=== PATIENT | female | born 1995 | race Caucasian/White ===

== ENCOUNTER → 2018-09-08 13:52 | Outpatient (CLI) | payer SELFPAY ==
[2018-09-08 16:07] LABS: Urine N gonorrhoeae NOT DETECTED
[2018-09-08 17:04] LABS: Pregnancy Test Urine Negative (Negative)
[2018-09-09 09:09] LABS: Urine Chlamydia DETECTED
== END ==
PROVIDERS: Visit Provider Physician Assistant
DX: N89.8 Other specified noninflammatory disorders of vagina (principal); N94.9 Unspecified condition associated with female genital organs and menstrual cycle
CPT/HCPCS: 81025; 87252; 87491; 87591

== ENCOUNTER → 2019-09-26 16:03 | Outpatient (CLI) | payer OTHER, SELFPAY ==
[2019-09-26 19:18] LABS: Creatinine Urine Random 87.1 mg/dL
[2019-09-26 19:23] LABS: Microalbumi Creatinin Ratio Ur 154.9 ug/mg CR (<30); Microalbumin Urine Random 13.5 mg/dL (0-1.6)
[2019-09-26 20:03] LABS: Add Manual Diff / Slide Review NO; Basophils Absolute Auto 100 /uL (0-100); Basophils Percent Auto 1.4 % (0-2); Eosinophils Absolute Auto 200 /uL (0-450); Hematocrit 36.6 % (36-46); Hemoglobin 12.5 g/dL (12.0-16.0); Lymphocytes Absolute Auto 3100 /uL (1100-4500); Lymphocytes Percent Auto 29.7 % (25-40); Mean Corpuscular HGB Conc 34.3 % (30-36); Mean Corpuscular Hemoglobin 27.8 PG (26-34); Monocytes Absolute Auto 700 /uL (0-900); Monocytes Percent Auto 6.9 % (3-14); Neutrophils Absolute Auto 6200 /uL (1500-7000); Platelet Count 365 X10^3/uL (150-400); Red Blood Cell Count 4.51 X10^6/uL (4.0-5.2); Red Cell Distribution Width 14.7 % (11.6-14.8); White Blood Cell Count 10.3 X10^3/uL (4.5-11.0)
[2019-09-26 20:12] LABS: Hemoglobin A1C% w Est Avg Glu 9.7 % (4.0-6.0)
[2019-09-26 20:17] LABS: Alanine Aminotransferase 15 IU/L (<35); Albumin 4.3 g/dL (3.5-5.0); Albumin Globulin Ratio 1.3 (1.0-2.8); Alkaline Phosphatase 52 U/L (38-126); Aspartate Aminotransferase 18 IU/L (14-36); Bilirubin Total 0.2 mg/dL (0.2-1.3); Blood Urea Nitrogen 13 mg/dL (7-17); Calcium 9.4 mg/dL (8.4-10.2); Carbon Dioxide 23 mmol/L (22-32); Chloride 102 mmol/L (98-107); Estimated Glomerular Filt Rate > 60.0 mL/min (>60); Globulin 3.2 g/dL (1.7-4.1); Glucose 188 mg/dL (70-100); HEMOLYSIS < 15 (0-50); Potassium 3.6 mmol/L (3.4-5.1); Sodium 135 mmol/L (137-145); Total Protein 7.5 g/dL (6.3-8.2)
[2019-09-26 20:47] LABS: TSH w/ Reflex to FT4 1.03 uIU/mL (0.47-4.68)
== END ==
PROVIDERS: PCP Registered Nurse Diabetes Educator; Referring Provider Registered Nurse Diabetes Educator; Visit Provider Registered Nurse Diabetes Educator
DX: R73.9 Hyperglycemia, unspecified (principal)
CPT/HCPCS: 36415; 80053; 82043; 82570; 83036; 84443; 85025

== ENCOUNTER 2020-09-27 19:21 | Emergency (ER) | payer OTHER, MEDICAID, SELFPAY ==
[2020-09-27 19:30] VITALS: BP 187/114; PULSE 137; RESP 15; TEMP 37.1; O2SAT 97; BMI 39.4
--- NOTE | 2020-09-27 20:43 | PC.NURSE ---
Hives started yesterday, relief after benadryl. Hives noted to abd, thighs, scalp, neck. Patient Denies SOB,chest pain. Denies tightness in throat, tongue or difficulty breathing.
[2020-09-27] MEDS: diphenhydrAMINE 25 MG TABLET 50 MG PO (21:38)
--- NOTE | 2020-09-27 21:41 | PC.NURSE ---
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 Hives have increased on neck, chest and breasts. Denies difficulty breathing or SOB. Verbal order for PO benadryl from DR Cuevas
[2020-09-27 21:42] VITALS: BP 154/97; PULSE 115; RESP 14; O2SAT 97
[2020-09-27] MEDS: predniSONE 20 MG TABLET 40 MG PO (23:01)
[2020-09-27 23:04] VITALS: BP 156/89; PULSE 119; RESP 20; O2SAT 99
--- NOTE | 2020-09-28 06:27 | ED.ALLEREA ---
HPI - Allergic Reaction General Chief complaint: Allergic Reaction Stated complaint: Broke Out in Hives, Puffy Around Eyes and Cheeks Time Seen by Provider: 09/27/20 22:46 Source: patient Mode of arrival: Ambulatory Limitations: no limitations History of Present Illness HPI narrative: 25-year-old woman experiencing hives in her upper extremities and cross her upper chest from unknown source. She has taken Benadryl but is concerned that the itching seems to be getting worse. She notes that she has been taking ibuprofen regularly for the last week or so due to dental pain and she is scheduled for a tooth extraction next week. She is also on labetalol for hypertension that was related to her recent . She is now 4 months and is not breast-feeding at this point. She does have Benadryl does help she did take a Claritin yesterday. She is not complaining of any respiratory symptoms or chest tightness. Related Data Previous Rx's Medication Instructions Recorded prednisone 20 mg PO DAILY #4 tab 09/27/20 Allergies Allergy/AdvReac Type Severity Reaction Status Date / Time No Known Drug Allergies Allergy Verified 09/27/20 19:35 Review of Systems Review of Systems Narrative: Pertinent positive and negative findings as per HPI Remainder of review of systems is otherwise unremarkable for Constitutional: Fevers, chills, weakness ENT: No sore throat, neck pain, ear pain CV: Chest pain, palpitations, Respiratory: Cough, wheeze, dyspnea GI: Nausea, vomiting, diarrhea, : Dysuria, hematuria, Patient History Medical History Hyperglycemia Social History Smoking Status: Current every day smoker Smoking Status: Current every day smoker alcohol intake frequency: holidays/special occasions only Substance Use Type: does not use Exam Narrative Exam Narrative: General: Alert appropriate in no acute distress HEENT: Some mild tenderness along the left ala and left upper lip. No pharyngeal findings. No tongue swelling, no cervical adenopathy Respiratory: Able to speak in full sentences, no obvious respiratory distress Skin: Urticarial lesions appreciated along the arms axilla upper chest. She has dermatographia appreciated Neurologic: Grossly intact no obvious asymmetries or abnormalities Psych: appropriate insight and affect, cooperative Initial Vital Signs Initial Vital Signs: Vital Signs Temperature 98.7 F 09/27/20 19:30 Pulse Rate 137 H 09/27/20 19:30 Respiratory Rate 15 09/27/20 19:30 Blood Pressure 187/114 H 09/27/20 19:30 Pulse Oximetry 97 09/27/20 19:30 Course Orders Ordered: Discontinued Medications Diphenhydramine HCl (Diphenhydramine 25 Mg Tablet) 50 mg PO NOW ONE Stop: 09/27/20 21:35 Last Admin: 09/27/20 21:38 Dose: 50 mg Documented by: ZITA Prednisone (Prednisone 20 Mg Tablet) 40 mg PO NOW ONE Stop: 09/27/20 22:55 Last Admin: 09/27/20 23:01 Dose: 40 mg Documented by: SAVITA Vital Signs Vital signs: Vital Signs - 8 hr 09/27/20 23:04 Pulse Rate 119 H Respiratory Rate 20 Blood Pressure 156/89 H Pulse Oximetry 99 MDM - Allergic Reaction Medical Records Attestation: I reviewed the patient's medical records. Lab Data Attestation: I reviewed the patient's lab results. MDM Narrative Medical decision making narrative: 25-year-old woman with the systemic allergic reaction uncertain etiology. Clearly increased histamine response in light of the noted dermatographia. She is given 60 mg of oral prednisone in the emergency department along with 50 mg of Benadryl and is clearly improving. Will ask her to continue 20 mg of prednisone for the next 4 days, Claritin for the next week and Benadryl as needed. If she is noting that any food or product that she uses seems to worsen her symptoms she needs to try to avoid these. At this point without evidence of pulmonary involvement or anaphylaxis I do think that an EpiPen is required. She is safe for home discharge Discharge Plan Departure Patient Disposition: Home Clinical Impression: Urticaria Allergic reaction Qualifiers: Encounter type: initial encounter Qualified Code(s): T78.40XA - Allergy, unspecified, initial encounter Instructions: DI for Hives Activity Restrictions/Additional Instructions: Thank you for coming in today I am not sure what is causing your allergic reaction however it does not appear to be affecting your airway today. I am going to suggest that you stop taking ibuprofen and see if this might be exacerbating your symptoms. I have given you a dose of Benadryl and prednisone here in the emergency department. I would like you to take an additional 20 mg of prednisone daily for the next 4 days. 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
== END 2020-09-27 23:04 | disposition home or self-care (01) ==
PROVIDERS: Emergency Provider Emergency Medicine; PCP Registered Nurse Diabetes Educator
DX: L50.9 Urticaria, unspecified (principal); T78.40XA Allergy, unspecified, initial encounter
CPT/HCPCS: 99283

== ENCOUNTER 2020-12-05 23:00 | Emergency (ER) | payer OTHER, MEDICAID, SELFPAY ==
[2020-12-05 23:09] VITALS: BP 145/97; PULSE 121; RESP 22; TEMP 37.4; O2SAT 99
[2020-12-05 23:43] LABS: COVID19 -Nasal RAPID Negative (Negative)
--- NOTE | 2020-12-06 04:26 | ED_ITS ---
HPI - URI/Sore Throat General Chief Complaint: Fever Stated Complaint: congestion Time Seen by Provider: 12/06/20 00:39 Source: patient Mode of arrival: Ambulatory History of Present Illness HPI Narrative: 25-year-old female nonsmoker with noncontributory medical history presents with a chief complaint of mild upper respiratory symptoms over the course of the day. She has had some runny nose and nasal congestion and had a sore throat last night. She denies any cough, chest pain or shortness of breath. She denies nausea, vomiting or diarrhea. She denies any change in her ability to smell. She is immunized against COVID. She had been seen by some family members last weekend, many of which have concerning symptoms for COVID but have yet to be tested. She is here and concerned that she may have COVID. She was exposed 5 days ago and symptoms started yesterday Related Data Previous Rx's Medication Instructions Recorded prednisone 20 mg tablet 20 mg PO DAILY #4 tab 09/27/20 Allergies Allergy/AdvReac Type Severity Reaction Status Date / Time No Known Drug Allergies Allergy Verified 09/27/20 19:35 Review of Systems Review of Systems Narrative: GENERAL: See HPI HEENT: See HPI RESPIRATORY: See CARDIOVASCULAR: Denies chest pain, palpitations, orthopnea, edema, GASTROINTESTINAL: Denies nausea, vomiting, abdominal pain, diarrhea, constipation, melena. : Denies dysuria, frequency, incontinence, hematuria, urinary retention. MUSCULOSKELETAL: denies weakness, joint pain, or bony pain SKIN: Denies rash, skin lesions, or other NEUROLOGIC: Denies weakness, headache, numbness, change in speech, confusion, seizures, incoordination. PSYCHIATRIC: No concerning psychosocial issues. 12 point review of systems is negative except for those stated above Patient History Medical History Hyperglycemia Social History Smoking Status: Current every day smoker Smoking Status: Current every day smoker alcohol intake frequency: holidays/special occasions only Substance Use Type: does not use Exam Narrative Exam Narrative: GEN: AOx3 and in mild distress EYES: Pupils are equal, round, and reactive to light and accommodation. Extraoccular muscles are intact bilaterally. There is no subconjunctival hemorrhage or exudate. ENT: Clear postnasal drip, no pharyngeal erythema tonsillar swelling or tonsillar exudate. CHEST: Lungs are clear to auscultation bilaterally and free of wheezes, rales, or rhonchi. Heart rate is regular rhythm, there are no murmurs, clicks, rubs, or gallops. There is no chest wall tenderness. ABD: Abdomen is soft and nontender. There is no guarding or rebound. Bowel sounds are normal in all 4 quadrants. There is no mass or organomegaly. EXT: Full painless ROM of all extremities with no loss of sensation or strength. SKIN: Warm, pink, and dry. No erythema or rash Initial Vital Signs Initial Vital Signs: Vital Signs Temperature 99.4 F 12/05/20 23:09 Pulse Rate 121 H 12/05/20 23:09 Respiratory Rate 22 12/05/20 23:09 Blood Pressure 145/97 H 12/05/20 23:09 Pulse Oximetry 99 12/05/20 23:09 Course Orders Ordered: ED Orders 12/05/20 23:26 COVID19 -Nasal swab/Pre-Proc Stat Vital Signs Vital signs: Vital Signs - 8 hr 12/05/20 23:09 Temperature 99.4 F Pulse Rate 121 H Respiratory Rate 22 Blood Pressure 145/97 H Pulse Oximetry 99 MDM - URI/Sore Throat Lab Data Labs: Lab Results 12/05/20 Range/Units 23:26 SARS-CoV-2 (PCR) Negative (Negative) [facility] Narrative Medical decision making narrative: Patient with mild upper respiratory symptoms since yesterday. She has a very reassuring physical exam, is in no respiratory distress with stable vital signs. Her COVID was negative today. I discussed with her that sometimes the tests are not as accurate this early on and recommended that she observed the same precautions that would be recommended where she found to be positive, and for ongoing symptoms for the next few days she should be retested. She expressed understanding of the plan and return precautions. Questions been answered to her apparent satisfaction Discharge Plan Departure Patient Disposition: Home Clinical Impression: Acute upper respiratory infection Instructions: DI for Viral Upper Respiratory Infection -- Adult Activity Restrictions/Additional Instructions: *You have been diagnosed with [acute viral upper respiratory infection, today's COVID test was negative, however as we discussed for ongoing symptoms it would be reasonable to stay home, self quarantine and retest in 2-3 days. *What to do: *Please continue to take your regular medications as directed. [ ] New medication prescriptions sent to your pharmacy: [ ] [ ] New medication written as a paper prescription [ x] No new medications given *Please follow up with your primary care provider in 2-3 days, call for an ap pointment. Let them know you were seen in the Emergency Department and that we ask that you be seen in follow up. We will electronically transmit a record of today's note if your PCP is in our system *If you do not have a primary care provider please contact the [facility] Resource line at [phone]. They will ask some questions about your medical history and help get you set up with a doctor in the community. *Return to Emergency Department if you should have any new, worsening or concerning symptoms, such as [fever greater than 101 F, shaking chills, worsening pain, persistent vomiting or other bothersome symptoms] Prescriptions: No Action prednisone 20 mg tablet 20 mg PO DAILY Qty: 4 RF: 0 Referrals: Gordon Sam ARNP [Primary Care Provider] -
== END 2020-12-06 01:09 | disposition home or self-care (01) ==
PROVIDERS: Emergency Provider Emergency Medicine; PCP Registered Nurse Diabetes Educator
DX: J06.9 Acute upper respiratory infection, unspecified (principal); Z20.822 Contact with and (suspected) exposure to COVID-19
CPT/HCPCS: 87635; 99281; 99282; C9803

== ENCOUNTER 2021-09-09 13:05 | Emergency (ER) | payer OTHER, MEDICAID, SELFPAY ==
[2021-09-09 13:17] VITALS: BP 162/110; PULSE 77; RESP 18; TEMP 36.8; O2SAT 99; BMI 37.8
--- NOTE | 2021-09-09 13:34 | ED_ITS ---
HPI - Allergic Reaction General Chief complaint: Allergic Reaction Stated complaint: Hives,Facial Swelling/Difficulty Swallowing,CP Time Seen by Provider: 09/09/21 13:34 Source: patient Mode of arrival: Ambulatory Limitations: no limitations History of Present Illness HPI narrative: This is a 26-year-old female who comes with complaint of hives that started Thursday, September 07 2 days ago. Patient states started with our hand they became painful swollen and itchy and then moved upper extremities towards her torso, she has had some swelling of face, intermittently her lips, she denies any intraoral or airway swelling. She has not had any wheezing but will feel a sensation like she needs to burp and she can not. She will sometimes make herself vomit once a day to allow this through. She states there is sometimes discomfort when she swallows but she is not have any difficulty with swallowing. She has not had any persistent nausea or vomiting. She has been constipated since Thursday. No fevers or chills. No blistering of her skin, no mucosal involvement. She had 1 prior episode about a year ago she states it was not quite as intense lasted 2 days and resolved she is unsure if she got anything f rom the hospital for it. She did not follow-up. She has had some frequency with urination. 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 She states she was on metformin insulin but these were both stopped with delivery. She has not had any prior surgeries. No known drug allergies. No known environmental allergies or triggers. No tobacco, alcohol or illicit. She does not have an active primary care physician currently. Related Data Previous Rx's Medication Instructions Recorded famotidine 20 mg tablet (Pepcid) 20 mg PO BID #10 tab 09/09/21 metformin 500 mg tablet 500 mg PO BID #30 tab 09/09/21 prednisone 20 mg tablet 40 mg PO DAILY 5 Days #10 tab 09/09/21 Allergies Allergy/AdvReac Type Severity Reaction Status Date / Time No Known Drug Allergies Allergy Verified 09/09/21 13:21 Review of Systems Review of Systems ROS Unobtainable: All systems reviewed & are unremarkable except as noted in HPI and below Patient History Medical History (Updated 09/09/21 @ 14:14 by Val Shepard DO) Hyperglycemia Social History Smoking Status: Current every day smoker Smoking Status: Current every day smoker alcohol intake frequency: holidays/special occasions only Substance Use Type: does not use Exam Narrative Exam Narrative: GEN: well nourished, well appearing female, alert and oriented x 3, patient appears to be in mild distress. HEENT: Atraumatic, pupils are equal round reactive to light, extraocular movements are intact, nares are clear, TMs are clear with no fluid, there is no conjunctival pallor. Throat is clear without any exudates, erythema, tonsillar enlargement or uvular deviation, no swelling of the lips, tongue or intraoral region. Normal speech, no stridor. Patient resting comfortably lying back. HEART: Regular rate and rhythm without murmur, clicks, rubs. Pulses are equal in upper and lower extremities LUNGS:Lungs clear to auscultation, no wheezes, rales, crackles, chest moves symmetrically ABD:bowel sounds normal, soft, non-tender, no guarding, rebound, rigidity, no masses noted, no hepatosplenomegaly :No CVA tenderness MSCL: Non-tender, no muscle atrophy, muscles strength 5/5 upper and lower extremities, full range of motion, normal gait NEURO:CN 2-12 intact, sensation normal SKIN: Patient does have hives on her torso and extremities. No petechia, no other rash or skin changes. No blistering or mucosal involvement appreciated. Initial Vital Signs Initial Vital Signs: Vital Signs Temperature 98.2 F 09/09/21 13:17 Pulse Rate 77 09/09/21 13:17 Respiratory Rate 18 09/09/21 13:17 Blood Pressure 162/110 H 09/09/21 13:17 Pulse Oximetry 99 09/09/21 13:17 Course Orders Ordered: ED Orders 09/09/21 13:26 EKG-12 Lead Stat 09/09/21 13:30 Complete Blood Count AUTO DIFF Stat Comprehensive Metabolic Panel Stat Hemoglobin A1C% w Est Avg Glu Stat Lipase Stat Troponin & CK Cardiac Panel Stat 09/09/21 13:54 Urine Microscopic Stat Discontinued Medications Diphenhydramine HCl (Diphenhydramine 50 Mg/Ml Vial) 25 mg IV NOW ONE Stop: 09/09/21 13:27 Last Admin: 09/09/21 13:37 Dose: 25 mg Documented by: KSWANSO Famotidine (Famotidine 20 Mg/2 Ml Vial) 20 mg IV NOW [place] Last Admin: 09/09/21 13:38 Dose: 20 mg Documented by: EDGAR Sodium Chloride (Normal Saline 0.9%) 1,000 mls @ 1,000 mls/hr IV BOLUS ONE Stop: 09/09/21 14:26 Last Infusion: 09/09/21 14:37 Dose: 0 mls/hr Documented by: Admin: 09/09/21 13:37 Dose: 1,000 mls/hr Documented by: EDGAR Methylprednisolone (Methylprednisolone 125 Mg/2 Ml Vial) 125 mg IV NOW ONE Stop: 09/09/21 13:27 Last Admin: 09/09/21 13:38 Dose: 125 mg Documented by: EDGAR Vital Signs Vital signs: Vital Signs - 8 hr 09/09/21 13:17 09/09/21 13:52 09/09/21 14:00 Temperature 98.2 F Pulse Rate 77 96 H 104 H Respiratory Rate 18 Blood Pressure 162/110 H 156/103 H 142/91 H Pulse Oximetry 99 96 96 09/09/21 14:30 Temperature Pulse Rate 90 Respiratory Rate Blood Pressure Pulse Oximetry 99 MDM - Allergic Reaction Lab Data Result diagrams: 09/09/21 13:30 09/09/21 13:30 Labs: Lab Results 09/09/21 09/09/21 09/09/21 Range/Units 13:30 13:30 13:30 WBC 11.1 H (4.5-11.0) X10^3/uL RBC 5.96 H (4.0-5.2) X10^6/uL Hgb 15.8 (12.0-16.0) g/dL Hct 46.3 H (36-46) % MCV 77.7 L (80-100) fL MCH 26.5 (26-34) PG MCHC 34.1 (30-36) % RDW 12.8 (11.6-14.8) % Plt Count 322 (150-400) X10^3/uL Neut % (Auto) 70.9 (50-75) % Lymph % (Auto) 22.6 L (25-40) % [place] % (Auto) 5.3 (3-14) % Eos % (Auto) 0.6 L (2-4) % Baso % (Auto) 0.6 (0-2) % Neut # (Auto) 7800 H (8020-3751) /uL Lymph # (Auto) 2500 (6326-6461) /uL [place] # (Auto) 600 (0-900) /uL Eos # (Auto) 100 (0-450) /uL Baso # (Auto) 100 (0-100) /uL Sodium 135 L (137-145) mmol/L Potassium 3.9 (3.4-5.1) mmol/L Chloride 102 (98-107) mmol/L Carbon Dioxide 22 (22-32) mmol/L BUN 12 (7-17) mg/dL Creatinine 0.57 (0.52-1.04) mg/dL Estimated GFR > 60 (>60) mL/min BUN/Creatinine Ratio 21.1 (6-22) Glucose 325 H (70-100) mg/dL Hemoglobin A1c 11.8 H (4.0-6.0) % Calcium 9.1 (8.4-10.2) mg/dL Total Bilirubin 0.6 (0.2-1.3) mg/dL AST 20 (14-36) IU/L ALT 19 (<35) IU/L Alkaline Phosphatase 69 (38-126) U/L Total Creatine Kinase 51 (30-135) U/L CK-MB (CK-2) TNP CK-MB (CK-2) Rel Index TNP Troponin I < 0.012 (0.01-0.034) ng/mL Total Protein 7.4 (6.3-8.2) g/dL Albumin 4.2 (3.5-5.0) g/dL Globulin 3.2 (1.7-4.1) g/dL Albumin/Globulin Ratio 1.3 (1.0-2.8) Lipase 189 (23-300) U/L Urine RBC (0-5/HPF) Urine WBC (0-5/HPF) Ur Squamous Epith Cells (0-5/HPF) Urine Bacteria (None) Urine Mucus (Negative) Ur Culture Indicated? 09/09/21 Range/Units 13:54 WBC (4.5-11.0) X10^3/uL RBC (4.0-5.2) X10^6/uL Hgb (12.0-16.0) g/dL Hct (36-46) % MCV (80-100) fL MCH (26-34) PG MCHC (30-36) % RDW (11.6-14.8) % Plt Count (150-400) X10^3/uL Neut % (Auto) (50-75) % Lymph % (Auto) (25-40) % [place] % (Auto) (3-14) % Eos % (Auto) (2-4) % Baso % (Auto) (0-2) % Neut # (Auto) (9092-2187) /uL Lymph # (Auto) (5624-5119) /uL [place] # (Auto) (0-900) /uL Eos # (Auto) (0-450) /uL Baso # (Auto) (0-100) /uL Sodium (137-145) mmol/L Potassium (3.4-5.1) mmol/L Chloride (98-107) mmol/L Carbon Dioxide (22-32) mmol/L BUN (7-17) mg/dL Creatinine (0.52-1.04) mg/dL Estimated GFR (>60) mL/min BUN/Creatinine Ratio (6-22) Glucose (70-100) mg/dL Hemoglobin A1c (4.0-6.0) % Calcium (8.4-10.2) mg/dL Total Bilirubin (0.2-1.3) mg/dL AST (14-36) IU/L ALT (<35) IU/L Alkaline Phosphatase (38-126) U/L Total Creatine Kinase (30-135) U/L CK-MB (CK-2) CK-MB (CK-2) Rel Index Troponin I (0.01-0.034) ng/mL Total Protein (6.3-8.2) g/dL Albumin (3.5-5.0) g/dL Globulin (1.7-4.1) g/dL Albumin/Globulin Ratio (1.0-2.8) Lipase (23-300) U/L Urine RBC 0-1/hpf (0-5/HPF) Urine WBC 1-5/hpf (0-5/HPF) Ur Squamous Epith Cells 1-5 /hpf (0-5/HPF) Urine Bacteria Few (2-10) H (None) Urine Mucus 2+ H (Negative) Ur Culture Indicated? Cult not indicated Point of Care Testing Test Results Negative Urine Dip Bedside Urine Glucose 1000 mg/dl Bedside Urine Bilirubin - Negative Bedside Urine Ketone +++ 80 Urine Specific [place] 1.025 Bedside Urine Occult Blood - Negative Bedside Urine pH 6.0 Bedside Urine Protein +++ 300 Bedside Urine Urobilinogen - Negative Bedside Urine Nitrite - Negative Bedside Urine Leukocytes - Negative Esterase ECG Data Attestation: I personally reviewed and interpreted this ECG as follows: Interpretation: Sinus rhythm case will PVCs. Rate 91 [place] 140 QRS is [address] No acute [address] changes appreciated patient does have a PVC No priors for comparison. MDM Narrative Medical decision making narrative: This is a 26-year-old female with hives that started on Thursday, she has not had any acute changes that make me suspect she has anaphylaxis, may be an allergic response versus urticarial and recommended patient follow-up with primary care and ultimately allergy as well as keeping track of any potential triggers or causes. It was noticed she has glucose and ketones on her urine, her labs showed glucose in the 300 range with no signs of DKA her bicarb is in normal range, anion gap is only 11 but she would likely benefit from being on a in oral medication for diabetes. She was on metformin in the past she states she did tolerate this well during her , she does not recall what issues she may have and we discussed restarting with 1 tablet daily and then increasing to twice daily and establishing with PCP and that hemoglobin A1c are average over 3 months was pending for her glucose. She was also on insulin during her . Referral given for PCP as well as metformin to start and prescription for short course of steroids which will help her glucose, PPI and benadryl. Discharge Plan Departure Patient Disposition: Home Clinical Impression: Hyperglycemia, Urticaria Instructions: DI for Diabetes Type 2, DI for Hives Activity Restrictions/Additional Instructions: Follow up with primary care, included is [phone] the call center to help you find a primary care physician. They can help me manage your glucose I suspect you are diabetic and you have elevated glucose today with ketones in your urine, a hemoglobin A1C was sent and is pending. A copy of your labs is included today. Primar care can also help with referral to Allergy/immunology if you continue to have persistent urticaria or hives. Chronic area can happen for multiple reasons, sometimes they are allergic or triggered by certain and substances, keep track in a log or notebook of your food, any soaps, glassware maker detergents, clothing detergents or other possible triggers in your for outside that year in contact with. Please take steroids once daily until gone. You may take Benadryl 1-2 tablets every 6 hours as needed. You may take Pepcid 1 tablet twice daily x5 days I would recommend taking metformin twice daily, you can start with once daily x5 days then increase to twice daily for diabetes Prescription sent to [facility] in [place] Please return for fevers, increasing swelling, swelling of the lips, tongue, throat, difficulty with breathing, swallowing your saliva or spit, severe headaches, shortness of breath, persistent vomiting or other new or concerning symptoms. Prescriptions: New prednisone 20 mg tablet 40 mg PO DAILY 5 Days Qty: 10 0RF famotidine [Pepcid] 20 mg tablet 20 mg PO BID Qty: 10 0RF metformin 500 mg tablet 500 mg PO BID Qty: 30 0RF Rx Instructions: Start with 1 tablet daily x 7 days, then 1 tablet BID Referrals: Gordon Sam ARNP [Primary Care Provider] - Visit Report Forms: Patient Portal/API
[2021-09-09] MEDS: diphenhydrAMINE 50 MG/ML VIAL 25 MG IV (13:37)
[2021-09-09] MEDS: SODIUM CHLORIDE 0.9% 1,000 ML 1000 ML IV (13:37)
[2021-09-09 13:38] LABS: Add Manual Diff / Slide Review NO; Basophils Absolute Auto 100 /uL (0-100); Basophils Percent Auto 0.6 % (0-2); Eosinophils Absolute Auto 100 /uL (0-450); Eosinophils Percent Auto 0.6 % (2-4); Hematocrit 46.3 % (36-46); Hemoglobin 15.8 g/dL (12.0-16.0); Lymphocytes Absolute Auto 2500 /uL (1100-4500); Lymphocytes Percent Auto 22.6 % (25-40); Mean Corpuscular HGB Conc 34.1 % (30-36); Mean Corpuscular Hemoglobin 26.5 PG (26-34); Mean Corpuscular Volume 77.7 fL (80-100); Monocytes Absolute Auto 600 /uL (0-900); Monocytes Percent Auto 5.3 % (3-14); Neutrophils Absolute Auto 7800 /uL (1500-7000); Neutrophils Percent Auto 70.9 % (50-75); Platelet Count 322 X10^3/uL (150-400); Red Blood Cell Count 5.96 X10^6/uL (4.0-5.2); Red Cell Distribution Width 12.8 % (11.6-14.8); White Blood Cell Count 11.1 X10^3/uL (4.5-11.0)
[2021-09-09] MEDS: FAMOTIDINE 20 MG/2 ML VIAL IV (13:38)
[2021-09-09] MEDS: methylPREDNISolone 125 MG/2 ML VIAL IV (13:38)
[2021-09-09 13:52] VITALS: BP 156/103; PULSE 96; O2SAT 96
[2021-09-09 14:00] VITALS: BP 142/91; PULSE 104; O2SAT 96
[2021-09-09 14:01] LABS: Alanine Aminotransferase 19 IU/L (<35); Albumin 4.2 g/dL (3.5-5.0); Albumin Globulin Ratio 1.3 (1.0-2.8); Alkaline Phosphatase 69 U/L (38-126); Aspartate Aminotransferase 20 IU/L (14-36); BUN Creatinine Ratio 21.1 (6-22); Bilirubin Total 0.6 mg/dL (0.2-1.3); Blood Urea Nitrogen 12 mg/dL (7-17); Calcium 9.1 mg/dL (8.4-10.2); Carbon Dioxide 22 mmol/L (22-32); Chloride 102 mmol/L (98-107); Creatine Kinase 51 U/L (30-135); Estimated Glomerular Filt Rate > 60 mL/min (>60); Globulin 3.2 g/dL (1.7-4.1); Glucose 325 mg/dL (70-100); HEMOLYSIS < 15 (0-50); Lipase 189 U/L (23-300); Potassium 3.9 mmol/L (3.4-5.1); Sodium 135 mmol/L (137-145); Total Protein 7.4 g/dL (6.3-8.2)
--- NOTE | 2021-09-09 14:05 | PC.NURSE ---
Pt reports hands swelling, hives, and difficulty swallowing that began 09/07/21 in the morning from unknown cause. Pt reports difficulty swallowing and pain in her upper chest that comes and goes. Currently chest pain is 3/10. She is able to talk in full sentences. Pt states she has not able to eat or drink and is nauseated at times. States, It hurts to swallow even when drinking through a straw. Hives noted on upper chest and bilateral upper arms. Pt reports a history of a similar episode that took place 1 year ago. She stated she still does not know what caused that reaction, but believes it may have been due to the heat and weather changes. Pt also reports thinking she has a UTI. Reports pain when urinating. Also states last BM was 09/07/21. Urine collected. Provider aware.
[2021-09-09 14:13] LABS: Troponin I < 0.012 ng/mL (0.01-0.034)
[2021-09-09 14:16] LABS: Bacteria Urine Few (2-10); Culture Indicated Urine Cult Not Indicated; Mucus Urine 2+ (Negative); RBC Urine 0-1/HPF (0-5/HPF); Squamous Epithelial Cell Urine 1-5 /HPF (0-5/HPF); WBC Urine 1-5/HPF (0-5/HPF)
[2021-09-09 14:30] VITALS: PULSE 90; O2SAT 99
[2021-09-09 14:40] LABS: Hemoglobin A1C% w Est Avg Glu 11.8 % (4.0-6.0)
== END 2021-09-09 14:41 | disposition home or self-care (01) ==
PROVIDERS: Emergency Provider Emergency Medicine; PCP Registered Nurse Diabetes Educator
DX: R73.9 Hyperglycemia, unspecified (principal); L50.9 Urticaria, unspecified; R10.9 Unspecified abdominal pain
CPT/HCPCS: 36415; 80053; 81003; 81015; 81025; 82550; 83036; 83690; 84484; 85025; 93005; 93010; 96374; 96375; 99284; J1200; J2930

== ENCOUNTER 2024-10-28 12:41 | Emergency (ER) | payer OTHER, SELFPAY ==
[2024-10-28] VITALS (19 sets, daily range): BP systolic 117–167; BP diastolic 73–100; PULSE 101–120; RESP 14–27; TEMP 36.4; O2SAT 95–97; BMI 30.9
--- NOTE | 2024-10-28 12:57 | EKG_ITS ---
[address] [address] Test Date: 2024-10-28 Pat Name: Vladimir Zheng Department: [facility] Room: Gender: Female [facility] Nursery: [facility] : 1995 Requested By: Order Number: [id number] Reading MD: Seth Carrasco Measurements Intervals [place] Rate: 110 P: 8 MS: 126 QRS: -8 QRSD: 78 T: -3 QT: 324 QTc: 438 Interpretive Statements Sinus tachycardia Cannot rule out Anterior infarct , age undetermined Electronically Signed On 11-11-2024 8:11:18 PDT by Seth Carrasco
--- NOTE | 2024-10-28 12:57 | DI.RAD.S_ITS ---
PROCEDURE: XR CHEST 1V INDICATIONS: Chest Pain TECHNIQUE: One view of the chest was acquired. COMPARISON: None. FINDINGS: Surgical changes and devices: None. Lungs and pleura: Lungs are clear. No pleural effusions or pneumothorax. Mediastinum: Mediastinal contours appear normal. Heart size is normal. Bones and chest wall: No suspicious bony lesions. Overlying soft tissues appear unremarkable. IMPRESSION: No acute cardiopulmonary abnormality is seen. Dictated by: John Fairbanks M.D. on 10/28/2024 at 13:18 Approved by: John Fairbanks M.D. on 10/28/2024 at 13:18
--- NOTE | 2024-10-28 13:25 | ED.CHESTPAIN ---
HPI - Chest Pain General Chief Complaint: Chest Pain Stated Complaint: Chest pain x 2 weeks Time Seen by Provider: 10/28/24 13:21 Source: patient Mode of arrival: Ambulatory Limitations: no limitations History of Present Illness HPI narrative: Pt presents to the ER with a past medical history significant for type 2 diabetes diagnosed in 2020 and high blood pressure. The patient, Vladimir, a 29-year-old female, presents with complaints of chest pain. She describes the pain as a tightness and heaviness on the left side of her chest. The pain comes and goes, is brief in duration, and occurs primarily when she inhales deeply. She denies any recent trauma to the chest area. The patient reports a similar episode about 10 days ago after spending all day swimming. She mentions feeling very tired after that incident. Yesterday, she experienced the worst pain, accompanied by a racing heart. She had difficulty lying down in bed due to the pain. The patient also notes an occasional cough and a tickle in her throat since last night, but denies feeling like she's coming down with a cold. She denies fever, significant cough, congestion, abdominal pain, nausea, vomiting, or diarrhea. Her last menstrual period was last Thursday, and she has a control implant in place. Family history is significant for blood clots in her grandparents. The patient is not currently taking any medications for her diabetes or high blood pressure, stating she didn't like the medications she was previously prescribed and had difficulty managing them after recently having a baby. She rarely drinks alcohol and has her gallbladder intact. Related Data Previous Rx's ?Medication ?Instructions ?Recorded famotidine 20 mg tablet (Pepcid) 20 mg PO BID #10 tabs 09/09/21 metformin 500 mg tablet 500 mg PO BID #30 tabs 09/09/21 doxycycline hyclate 100 mg capsule 100 mg PO BID #20 caps 10/28/24 Allergies Allergy/AdvReac Type Severity Reaction Status Date / Time No Known Drug Allergies Allergy Verified 10/28/24 12:58 Patient History Medical History (Updated 10/28/24 @ 17:37 by Eloy Laguna MD) Hyperglycemia Social History Smoking Status: Current every day smoker Smoking Status: Current every day smoker alcohol intake frequency: holidays/special occasions only Exam Narrative Exam Narrative: VS as noted above Focused physical exam as follows: General: Well developed, well nourished, no acute distress HEENT: pink palpebral conjunctiva, anicteric sclera, PATY, moist mucous membranes, no JVD, no cervical lymphadenopathy Lungs: no respiratory distress, clear to auscultation without wheezes or crackles; equal breath sounds; mild reproducible pain on the L chest with palpation Heart: normal rate, regular rhythm, no appreciable murmurs Abdomen: soft, nontender, no rebound or rigidity Musculoskeletal: no gross deformities with full ROM in all extremities, no pedal edema Skin: pink, warm; no rashes Neuro: ?AAOx3, GCS 15, nonfocal exam Psyche: no SI/HI, normal affect Initial Vital Signs Initial Vital Signs: Vital Signs Temperature 97.6 F 10/28/24 12:55 Pulse Rate 120 H 10/28/24 12:55 Respiratory Rate 18 10/28/24 12:55 Blood Pressure 167/100 H 10/28/24 12:55 Pulse Oximetry 97 10/28/24 12:55 Oxygen Delivery Method Room Air 10/28/24 12:55 Course Orders Ordered: Discontinued Medications Aspirin (Aspirin 81 Mg Chew Tab) 324 mg PO NOW ONE Stop: 10/28/24 12:58 Last Admin: 10/28/24 14:06 Dose: Not Given Documented By: NANCY Doxycycline Hyclate (Doxycycline Hyclate 100 Mg Tablet) 100 mg PO NOW ONE Stop: 10/28/24 17:36 Last Admin: 10/28/24 17:49 Dose: 100 mg Documented By: NANCY Ceftriaxone Sodium 1,000 mg/ (Sodium Chloride) 100 mls @ 200 mls/hr IV NOW ONE Stop: 10/28/24 17:36 Last Infusion: 10/28/24 18:42 Dose: Infused Documented By: Admin: 10/28/24 17:49 Dose: 200 mls/hr Documented By: NANCY Vital Signs Vital signs: Vital Signs - 8 hr 10/28/24 12:55 10/28/24 13:53 10/28/24 14:00 Temperature 97.6 F Pulse Rate 120 H 113 H Respiratory Rate 18 Blood Pressure 167/100 H 127/80 Pulse Oximetry 97 96 Oxygen Delivery Method Room Air 10/28/24 14:00 10/28/24 14:34 10/28/24 14:35 Temperature Pulse Rate 110 H 114 H Respiratory Rate 23 20 Blood Pressure 133/82 Pulse Oximetry 95 96 Oxygen Delivery Method 10/28/24 14:35 Temperature Pulse Rate 109 H Respiratory Rate 24 Blood Pressure Pulse Oximetry 95 Oxygen Delivery Method MDM - Chest Pain Lab Data 10/28/24 13:16 10/28/24 13:16 Labs: Lab Results 10/28/24 Range/Units 13:16 WBC 9.3 (4.5-11.0) X10^3/uL RBC 5.23 H (4.0-5.2) X10^6/uL Hgb 14.4 (12.0-16.0) g/dL Hct 41.0 (36-46) % MCV 78.3 L (80-100) fL MCH 27.4 (26-34) PG MCHC 35.0 (30-36) % RDW 13.1 (11.6-14.8) % Plt Count 325 (150-400) X10^3/uL Neut % (Auto) 68.4 (50-75) % Lymph % (Auto) 21.8 L (25-40) % [place] % (Auto) 7.0 (3-14) % Eos % (Auto) 1.8 L (2-4) % Baso % (Auto) 1.0 (0-2) % Neut # (Auto) 6400 (9058-6788) /uL Lymph # (Auto) 2000 (9978-5903) /uL [place] # (Auto) 700 (0-900) /uL Eos # (Auto) 200 (0-450) /uL Baso # (Auto) 100 (0-100) /uL PT 11.7 (9.4-12.5) SECONDS INR 1.0 (0.9-1.3) APTT 31 (25.1-36.5) SECONDS D-Dimer 405 (<500) ng/ml Sodium 131 L (137-145) mmol/L Potassium 4.0 (3.4-5.1) mmol/L Chloride 99 (98-107) mmol/L Carbon Dioxide 19 L (22-32) mmol/L BUN 9 (7-17) mg/dL Creatinine 0.49 L (0.52-1.04) mg/dL Estimated GFR > 60 (>60) mL/min BUN/Creatinine Ratio 18.4 (6-22) Glucose 435 H (70-99) mg/dL Calcium 8.8 (8.4-10.2) mg/dL Magnesium 1.6 (1.6-2.3) mg/dL Total Bilirubin 0.6 (0.2-1.3) mg/dL AST 25 (14-36) IU/L ALT 27 (<35) IU/L Alkaline Phosphatase 82 (38-126) U/L Total Creatine Kinase 28 L (30-135) U/L Troponin I < 0.012 (0.01-0.034) ng/mL NT-Pro-B Natriuret Pep < 20 (<125) pg/mL Total Protein 7.3 (6.3-8.2) g/dL Albumin 4.0 (3.5-5.0) g/dL Globulin 3.3 (1.7-4.1) g/dL Albumin/Globulin Ratio 1.2 (1.0-2.8) Lipase 48 (23-300) U/L Point of Care Testing Test Results Negative Imaging Data CTA chest: Radiologist's Impression: IMPRESSION: No pulmonary embolus. Abnormally enlarged mediastinal lymph nodes are seen. There is also a mildly enlarged spleen. Although nonspecific, concern is raised for lymphoma in a patient of this age. Focal consolidation can be seen involving the left lateral costophrenic angle, with enhancement. Atelectasis is suspected. Neoplasm is considered to be unlikely in a patient of this young age at this site. ECG Data Interpretation: 1400 - sinus tach @ 110 - nonspecific STTW changes; QTc 438 MDM Narrative Medical decision making narrative: HPI, PMHx, PSHx, Medication list, Allergies, ROS and Focused exam were reviewed above. ?Differential diagnosis as noted below. ?Social determinants affecting care considered. ?All of these were taken into consideration warranting above listed work up. ?Consultations as deemed necessary were documented below (if listed). Labs (if ordered and noted) were independently reviewed by me. Imaging studies (if ordered and noted) were independently reviewed by me EKG (if noted) was independently reviewed by me External documents (if reviewed) are documented above Initial VS noted above. ? Differential diagnosis considered include (but not limited to) the following: costochondritis, pleurisy, pneumonia, viral resp illness, PTX, PE, ACS, cardiac dysrhythmia, hiatal hernia, GERD, gastritis, gastric ulcer, pancreatitis, anxiety, adverse effect of illicit drug/ETOH, liver or kidney failure Pt interviewed and examined. Bedside EKG showed no ST elevation or ectopy. Pain worse with inspiration. Work up initiated. Labs overall normal including Troponin and D-dimer. Considering FHx of PE, will proceed with CTA chest. CTA chest showed no PE but does have mediastinal lymphadenopathy and mild splenomegaly. Focal findings in the LLL could be atelectasis vs. infltrate. Discussed work up and plan of care. Will treat with round of antibiotics to cover for pneumonia and she will need to follow up with PCP for repeat imaging studies for improvement. Rocephin IV then Doxycycline PO ordered. Stable for discharge with return precautions. Discharge Plan Departure Patient Disposition: Home Clinical Impression: Pleurisy, LAD (lymphadenopathy), mediastinal Pneumonia Qualifiers: Pneumonia type: due to unspecified organism Laterality: left Lung location: lower lobe of lung Qualified Code(s): J18.9 - Pneumonia, unspecified organism Instructions: Atypical Pneumonia Prescriptions: New doxycycline hyclate 100 mg capsule 100 mg PO BID Qty: 20 0RF No Action famotidine [Pepcid] 20 mg tablet 20 mg PO BID Qty: 10 0RF metformin 500 mg tablet 500 mg PO BID Qty: 30 0RF Rx Instructions: Start with 1 tablet daily x 7 days, then 1 tablet BID Referrals: Gordon Sam ARNP [Primary Care Provider, Medical] Stand Alone Forms: Patient Portal/API
[2024-10-28 13:28] LABS: Add Manual Diff / Slide Review NO; Hematocrit 41.0 % (36-46); Hemoglobin 14.4 g/dL (12.0-16.0); Lymphocytes Absolute Auto 2000 /uL (1100-4500); Mean Corpuscular HGB Conc 35.0 % (30-36); Mean Corpuscular Hemoglobin 27.4 PG (26-34); Mean Corpuscular Volume 78.3 fL (80-100); Platelet Count 325 X10^3/uL (150-400)
[2024-10-28 13:35] LABS: INR 1.0 (0.9-1.3); Prothrombin Time 11.7 SECONDS (9.4-12.5)
[2024-10-28 13:38] LABS: PTT Partial Thromboplastin Tim 31 SECONDS (25.1-36.5)
[2024-10-28 13:39] LABS: Alanine Aminotransferase 27 IU/L (<35); Albumin 4.0 g/dL (3.5-5.0); Albumin Globulin Ratio 1.2 (1.0-2.8); Alkaline Phosphatase 82 U/L (38-126); Blood Urea Nitrogen 9 mg/dL (7-17); Calcium 8.8 mg/dL (8.4-10.2); Carbon Dioxide 19 mmol/L (22-32); Chloride 99 mmol/L (98-107); Creatine Kinase 28 U/L (30-135); Estimated Glomerular Filt Rate > 60 mL/min (>60); Globulin 3.3 g/dL (1.7-4.1); Glucose 435 mg/dL (70-99); HEMOLYSIS < 15 (0-50); Lipase 48 U/L (23-300); Magnesium 1.6 mg/dL (1.6-2.3); Potassium 4.0 mmol/L (3.4-5.1); Sodium 131 mmol/L (137-145); Total Protein 7.3 g/dL (6.3-8.2)
[2024-10-28 13:51] LABS: NT-proBNP (BNP-Adult 18+) < 20 pg/mL (<125); Troponin I < 0.012 ng/mL (0.01-0.034)
--- NOTE | 2024-10-28 14:06 | DI.CT.S_ITS ---
PROCEDURE: CT ANGIO CHEST PE PROTOCOL INDICATIONS: chest pain, FHx PE TECHNIQUE: After the administration of intravenous contrast, 2 mm thick sections acquired from the pulmonary apices to the posterior costophrenic angles. 3-dimensional maximum intensity projection (MIP) coronal and sagittal reformats were then acquired through the thorax. For radiation dose reduction, the following was used: automated exposure control, adjustment of mA and/or kV according to patient size. COMPARISON: [facility], CR, XR CHEST 1V, 10/28/2024, 12:55. FINDINGS: Image quality: Diagnostic. Pulmonary arteries: Pulmonary arteries are normal in size, and demonstrate no intraluminal filling defects to suggest central pulmonary embolism. Lower Neck: No enlarged lymph nodes. Thyroid: No thyroid nodules which require sonographic follow up, per consensus guidelines. Axillae: No enlarged lymph nodes. Chest Wall: Unremarkable. Bones: Unremarkable. Lungs and Pleura: There is focal consolidation seen involving the left lateral costophrenic angle. The lungs otherwise appear clear. No pneumothorax or pleural effusions are seen. Heart: Heart size is normal. No pericardial effusion. Thoracic Vessels: No aortic aneurysm. Mediastinum and Lynda: Numerous enlarged mediastinal lymph nodes can be seen, including a group of prevascular lymph nodes superiorly measuring 31 x 18 mm. There is a group of subcarinal lymph nodes measuring 31 x 19 mm. Enlarged perihilar lymph nodes are seen, including a left perihilar lymph node measuring 17 x 14 mm. Esophagus: No wall thickening. No hiatal hernia. Upper Abdomen: The spleen is enlarged, measuring 13 cm AP. IMPRESSION: No pulmonary embolus. Abnormally enlarged mediastinal lymph nodes are seen. There is also a mildly enlarged spleen. Although nonspecific, concern is raised for lymphoma in a patient of this age. Focal consolidation can be seen involving the left lateral costophrenic angle, with enhancement. Atelectasis is suspected. Neoplasm is considered to be unlikely in a patient of this young age at this site. Note: Findings and recommendations discussed by telephone with nurse Shahid at 4:48 p.m. [place] time on October 28, 2024. Dictated by: Preet Rosado M.D. on 10/28/2024 at 15:44 Approved by: Preet Rosado M.D. on 10/28/2024 at 15:51
--- NOTE | 2024-10-28 14:52 | PC.NURSE ---
Pt states she has been told she has HTN and Diabetes but states she has not been treated for either. States she does not follow up with her doctor. Pt noted to have high blood sugar at home. No ulcers or wounds. Pt states she has been having ongoing chest pain.
[2024-10-28] MEDS: DOXYCYCLINE HYCLATE 100 MG TABLET PO (17:49)
== END 2024-10-28 18:44 | disposition home or self-care (01) ==
PROVIDERS: Emergency Provider Emergency Medicine; PCP Registered Nurse Diabetes Educator
DX: J18.9 Pneumonia, unspecified organism (principal); R09.1 Pleurisy; R59.0 Localized enlarged lymph nodes; E11.9 Type 2 diabetes mellitus without complications; I10 Essential (primary) hypertension
CPT/HCPCS: 36415; 71045; 71275; 80053; 81025; 82550; 83690; 83735; 83880; 84484; 85025; 85379; 85610; 85730; 93005; 96365; 99284; J0696; Q9967